=== PATIENT | female | born 1955 | race Caucasian/White ===

== ENCOUNTER 2016-08-22 10:04 | Outpatient (CLI) | payer OTHER ==
[~2016-08-22 10:04] MED LIST: ESTRADIOL1 MG PO; FENTANYL25 MCG/HR TOP; FENTANYL50 MCG/HR TOP; FLAX SEED OIL1000 MG PO; FLUOXETINE HCL20 MG PO; GAVISCON; LORAZEPAM1 MG PO; METHOCARBAMOL750 MG PO; MULTIVITAMIN1 TAB PO; NEURONTIN300 MG PO; OMEPRAZOLE20 M1 PO; OXYBUTYNIN CHLOR5 MG PO; PROBIOTI1; TEMAZEPAM30 MG PO; TRAMADOL HCL50 MG PO
--- NOTE | 2016-08-23 07:55 | DIAGNOSTIC IMAGING REPORT ---
PROCEDURE: [facility] HEPATOBILIARY IMAGING INDICATION: Right upper quadrant pain x 6 months, initial encounter TECHNIQUE: 8 mCi of technetium-99m Choletec was injected intravenously and images were acquired over a one hour time interval. Subsequently, fatty meal shake was given orally with calculation of gallbladder ejection fraction. COMPARISON: Abdominal ultrasound 06/16/2016 FINDINGS: There is homogeneous radiotracer uptake throughout the liver. Gallbladder is first visualized at 16 minutes. Following fatty meal, small bowel activity was noted. Gallbladder ejection fraction was 81% at 20 minutes, 88% at 40 minutes and 93% at 60 minutes. IMPRESSION: 1. Normal hepatobiliary scan and ejection fraction (93%).
== END 2016-08-22 23:00 ==
LOC: NM SRH 10:04
DX: R10.11 Right upper quadrant pain (principal)